=== PATIENT | male | born 1945 | race Caucasian/White ===

== ENCOUNTER 2018-07-02 11:57 | Inpatient (IN) ==
--- NOTE | 2018-07-02 12:13 | Emergency Department Note ---
Disposition Clinical Impression: Dehydration, Diarrhea due to drug Disposition: Admitted As Inpatient Condition: Good Nausea/Vomiting/Diarrhea HPI - General Chief complaint: ED Nausea/Vomiting/Diarrhea Stated complaint: CA PT, NAUSEA VOMITING Time Seen by Provider: 07/02/18 11:57 Source: patient, family Mode of arrival: wheelchair Limitations: no limitations Nursing Notes Reviewed: Yes Vital Signs Reviewed: Yes - History of Present Illness HPI Narrative: Patient complains of diarrhea and nausea. He is on chemotherapy for cancer treatment. He can drink fluids but he cannot keep up with his fluid losses and feels dehydrated. The diarrhea is been going on for several days. He is feeling more more dehydrated each day. There has been no reports of fevers or chills chest pain shortness of breath or other complaints. Pt Subjective Complaint: nausea, vomiting Onset (ago): day(s) (Several days of diarrhea) Description of emesis: watery Description of Diarrhea: water Quality: cramping Consistency: constant Improves with: nothing Worsens with: nonthing Context: other (Chemotherapy) Associated symptoms: Reports: nausea/vomiting, other (Diarrhea) - Related Data Home Medications Medication Instructions Recorded Confirmed LORazepam [Ativan] 0.5 mg PO HS 07/02/18 07/02/18 Ondansetron HCl [Zofran] 4 mg PO Q8HR PRN 07/02/18 07/02/18 Allergies Allergy/AdvReac Type Severity Reaction Status Date / Time No Known Allergies Allergy Verified 07/02/18 12:13 All systems ED: reviewed and negative except as stated. Review of Systems: As Per HPI Constitutional: Denies: fever, chills, weakness, weight change Eyes: Denies: eye pain, eye discharge, vision change ENT ED: Denies: ear pain, throat pain, dental pain, hearing loss, epistaxis, congestion, dysphagia Cardiovascular: Denies: chest pain, palpitations, dyspnea on exertion, edema, syncope Respiratory: Denies: cough, dyspnea, wheezes, hemoptysis, stridor Gastrointestinal: Reports: as per HPI, nausea, diarrhea. Denies: abdominal pain, vomiting, constipation, hematemesis, melena, hematochezia Genitourinary: Denies: urgency, dysuria, frequency, hematuria Musculoskeletal: Denies: back pain, neck pain, arthralgia, myalgia Integumentary: Denies: rash, abrasion, lesions Neurological: Denies: headache, weakness, numbness, paresthesias, confusion, abnormal gait, vertigo Psychiatric: Denies: anxiety, depression, suicidal thoughts, homicidal thoughts, auditory hallucinations, visual hallucinations Endocrine: Denies: fatigue Hematological/Lymphatic: Denies: easy bleeding, easy bruising Allergic/Immunologic: Denies: facial swelling, urticaria Past Medical History - Past Medical History Attestation: Yes The following information was validated with the patient. Source: patient, nursing notes reviewed Physical Exam - General Limitations: no limitations General appearance: alert, in no apparent distress - Head Head exam: atraumatic, normocephalic, normal inspection - Eye Eye exam: Present: normal appearance, PERRL, EOMI - ENT ENT exam: normal exam, normal oropharynx, mucous membranes moist - Neck Neck exam: Present: normal inspection, full ROM, trachea midline - Chest Chest inspection: Present: normal inspection, symmetric chest wall rise - Respiratory Respiratory exam: Present: normal lung sounds bilaterally - Cardiovascular Cardiovascular exam: Present: regular rate, normal rhythm, normal heart sounds - Abdominal Exam Abdominal exam: Present: soft, Non-Tender. Absent: tenderness, distention, guarding, rebound, rigidity - Extremities Exam Extremities exam: Present: normal inspection, full ROM. Absent: tenderness, pedal edema - Back Exam Back exam: Present: normal inspection - Neurological Exam Neurological exam: Present: alert, oriented X3 - Psychiatric Psychiatric exam: Present: normal affect, normal mood - Skin Skin exam: Present: warm, dry, other (Poor skin turgor) Course Vital Signs Temperature 97.7 F 07/02/18 12:01 Pulse Rate 77 07/02/18 12:01 Respiratory Rate 16 07/02/18 12:01 Blood Pressure 145/86 07/02/18 12:01 O2 Sat by Pulse Oximetry 89 07/02/18 12:01 Temperature 97.5 F L 07/04/18 08:00 Pulse Rate 63 07/04/18 08:00 Respiratory Rate 16 07/04/18 08:00 Blood Pressure 134/73 07/04/18 08:00 O2 Sat by Pulse Oximetry 90 07/04/18 08:00 Oxygen Delivery Oxygen Delivery Room Air Nausea/Vomiting/Diarrhea - MDM Narrative Medical decision making narrative: I reviewed the patient's medication list Case was discussed with Dr. Newton who has graciously accepted admission. - Lab Data Lab results reviewed: Yes I reviewed the patient's lab results. Result diagrams: 07/04/18 05:45 07/04/18 05:45 Lab Results 07/02/18 07/02/18 07/02/18 Range/Units 12:20 12:20 16:58 WBC 2.2 L (4.3-11.1) K/mcL RBC 4.34 (4.19-5.50) M/mcL Hgb 12.5 L (12.9-16.9) g/dL Hct 37.5 (37.5-50.1) % MCV 86.4 (83.0-100.0) fL MCH 28.8 (28.0-33.3) pg MCHC 33.3 (31.6-35.5) g/dL RDW 14.9 H (11.5-14.5) % Plt Count 152 (140-400) K/mcL MPV 10.4 (9.4-12.4) fL Seg Neutrophils % 8.0 % Band Neutrophils % (0-4) % Lymphocytes % 58.0 % Monocytes % 28.0 % Eosinophils % 2.0 % Myelocytes % (0) % Blast Cells % 4.0 H (0) % Neutrophils # 0.2 L (1.6-8.9) K/mcL Lymphocytes # 1.3 (0.6-4.6) K/mcL Monocytes # 0.6 (0.0-1.3) K/mcL Eosinophils # 0.0 (0.0-0.6) K/mcL Nucleated RBCs/100 WBC 1.8 H (0) /100 WBC Reactive Lymphocytes Present A (Not Present) Dohle Bodies (Not Present) Platelet Estimate Normal (Normal) Large Platelets (Not Present) Polychromasia 2+ A (Not Present) Hypochromasia (Not Present) Anisocytosis 1+ A (Not Present) Sodium 138 (136-145) mEq/L Potassium 2.9 L (3.5-5.1) mEq/L Chloride 101 (98-107) mEq/L Carbon Dioxide 24 (23-29) mEq/L BUN 23 (8-23) mg/dL Creatinine 1.27 (0.70-1.30) mg/dL Est GFR ( Amer) > 60 (> 60) Est GFR (Non-Af Amer) 55 L (> 60) BUN/Creatinine Ratio 18 (6-26) Glucose 222 H (70-105) mg/dL Est Mean Plasma Glucose mg/dl Hemoglobin A1c ( - 5.6) % Calculated Osmolality 297 (280-300) Calcium 8.4 L (8.6-10.3) mg/dL Magnesium (1.6-2.6) mg/dL Iron (65-175) mcg/dL % Saturation (20-55) % Transferrin (203-362) mg/dL Ferritin (20-250) ng/mL Total Bilirubin 1.1 H (0.3-1.0) mg/dL AST 10 L (13-39) Units/L ALT 21 (7-52) Units/L Alkaline Phosphatase 71 (34-104) Units/L Serum Total Protein 6.4 (6.4-8.9) g/dL Albumin 3.0 L (3.5-5.7) g/dL Globulin 3.4 (2.4-3.5) g/dL Albumin/Globulin Ratio 0.9 L (1.1-2.2) Vitamin B12 (250-1100) pg/mL Folate (3.0-16.0) ng/mL TSH (0.340-5.600) mcIU/mL Urine Color Keena A (Yellow) Urine Clarity Clear (Clear) Urine pH 6.0 (5.0-8.0) pH Units Ur Specific [place] >= 1.030 H (1.010-1.025) Urine Protein >=300 H (Neg-Trace) mg/dL Urine Glucose (UA) Normal (Normal) mg/dL Urine Ketones Negative (Negative) mg/dL Urine Blood Small H (Negative) Urine Nitrite Negative (Negative) Urine Bilirubin Small H (Negative) Urine Urobilinogen Normal (Normal) mg/dL Ur Leukocyte Esterase Negative (Negative) Urine Microscopic RBC 0-3 (0-3) per hpf Urine Microscopic WBC 0-3 (0-3) per hpf Ur Squamous Epith Cells Few (None-Few) per lpf Urine Bacteria Many H (None-Few) per hpf Hyaline Casts Few (None-Few) per lpf Urine Mucus Moderate H (Few) Ur Culture Indicated? NO (NO) 07/03/18 07/03/18 07/03/18 Range/Units 04:50 04:50 04:50 WBC 3.9 L D (4.3-11.1) K/mcL RBC 3.57 L (4.19-5.50) M/mcL Hgb 10.3 L D (12.9-16.9) g/dL Hct 31.4 L (37.5-50.1) % MCV 88.0 (83.0-100.0) fL MCH 28.9 (28.0-33.3) pg MCHC 32.8 (31.6-35.5) g/dL RDW 15.1 H (11.5-14.5) % Plt Count 129 L (140-400) K/mcL MPV 11.2 (9.4-12.4) fL Seg Neutrophils % 28.0 % Band Neutrophils % 20.0 H (0-4) % Lymphocytes % 42.0 % Monocytes % 4.0 % Eosinophils % % Myelocytes % 6.0 H (0) % Blast Cells % (0) % Neutrophils # 1.9 (1.6-8.9) K/mcL Lymphocytes # 1.6 (0.6-4.6) K/mcL Monocytes # 0.2 (0.0-1.3) K/mcL Eosinophils # (0.0-0.6) K/mcL Nucleated RBCs/100 WBC 1.3 H (0) /100 WBC Reactive Lymphocytes (Not Present) Dohle Bodies Present A (Not Present) Platelet Estimate Normal (Normal) Large Platelets Present A (Not Present) Polychromasia 1+ A (Not Present) Hypochromasia Present A (Not Present) Anisocytosis (Not Present) Sodium 141 (136-145) mEq/L Potassium 2.9 L (3.5-5.1) mEq/L Chloride 108 H (98-107) mEq/L Carbon Dioxide 25 (23-29) mEq/L BUN 19 (8-23) mg/dL Creatinine 1.04 (0.70-1.30) mg/dL Est GFR ( Amer) > 60 (> 60) Est GFR (Non-Af Amer) > 60 (> 60) BUN/Creatinine Ratio 18 (6-26) Glucose 139 H (70-105) mg/dL Est Mean Plasma Glucose mg/dl Hemoglobin A1c ( - 5.6) % Calculated Osmolality 297 (280-300) Calcium 7.6 L (8.6-10.3) mg/dL Magnesium (1.6-2.6) mg/dL Iron 80 (65-175) mcg/dL % Saturation 41 (20-55) % Transferrin 139 L (203-362) mg/dL Ferritin 1099 H (20-250) ng/mL Total Bilirubin (0.3-1.0) mg/dL AST (13-39) Units/L ALT (7-52) Units/L Alkaline Phosphatase (34-104) Units/L Serum Total Protein (6.4-8.9) g/dL Albumin (3.5-5.7) g/dL Globulin (2.4-3.5) g/dL Albumin/Globulin Ratio (1.1-2.2) Vitamin B12 (250-1100) pg/mL Folate (3.0-16.0) ng/mL TSH 5.541 (0.340-5.600) mcIU/mL Urine Color (Yellow) Urine Clarity (Clear) Urine pH (5.0-8.0) pH Units Ur Specific [place] (1.010-1.025) Urine Protein (Neg-Trace) mg/dL Urine Glucose (UA) (Normal) mg/dL Urine Ketones (Negative) mg/dL Urine Blood (Negative) Urine Nitrite (Negative) Urine Bilirubin (Negative) Urine Urobilinogen (Normal) mg/dL Ur Leukocyte Esterase (Negative) Urine Microscopic RBC (0-3) per hpf Urine Microscopic WBC (0-3) per hpf Ur Squamous Epith Cells (None-Few) per lpf Urine Bacteria (None-Few) per hpf Hyaline Casts (None-Few) per lpf Urine Mucus (Few) Ur Culture Indicated? (NO) 07/03/18 07/03/18 07/03/18 Range/Units 04:50 04:50 11:45 WBC (4.3-11.1) K/mcL RBC (4.19-5.50) M/mcL Hgb (12.9-16.9) g/dL Hct (37.5-50.1) % MCV (83.0-100.0) fL MCH (28.0-33.3) pg MCHC (31.6-35.5) g/dL RDW (11.5-14.5) % Plt Count (140-400) K/mcL MPV (9.4-12.4) fL Seg Neutrophils % % Band Neutrophils % (0-4) % Lymphocytes % % Monocytes % % Eosinophils % % Myelocytes % (0) % Blast Cells % (0) % Neutrophils # (1.6-8.9) K/mcL Lymphocytes # (0.6-4.6) K/mcL Monocytes # (0.0-1.3) K/mcL Eosinophils # (0.0-0.6) K/mcL Nucleated RBCs/100 WBC (0) /100 WBC Reactive Lymphocytes (Not Present) Dohle Bodies (Not Present) Platelet Estimate (Normal) Large Platelets (Not Present) Polychromasia (Not Present) Hypochromasia (Not Present) Anisocytosis (Not Present) Sodium (136-145) mEq/L Potassium (3.5-5.1) mEq/L Chloride (98-107) mEq/L Carbon Dioxide (23-29) mEq/L BUN (8-23) mg/dL Creatinine (0.70-1.30) mg/dL Est GFR ( Amer) (> 60) Est GFR (Non-Af Amer) (> 60) BUN/Creatinine Ratio (6-26) Glucose (70-105) mg/dL Est Mean Plasma Glucose 160 mg/dl Hemoglobin A1c 7.2 H ( - 5.6) % Calculated Osmolality (280-300) Calcium (8.6-10.3) mg/dL Magnesium 1.9 (1.6-2.6) mg/dL Iron (65-175) mcg/dL % Saturation (20-55) % Transferrin (203-362) mg/dL Ferritin (20-250) ng/mL Total Bilirubin (0.3-1.0) mg/dL AST (13-39) Units/L ALT (7-52) Units/L Alkaline Phosphatase (34-104) Units/L Serum Total Protein (6.4-8.9) g/dL Albumin (3.5-5.7) g/dL Globulin (2.4-3.5) g/dL Albumin/Globulin Ratio (1.1-2.2) Vitamin B12 703 (250-1100) pg/mL Folate > 22.3 H (3.0-16.0) ng/mL TSH (0.340-5.600) mcIU/mL Urine Color (Yellow) Urine Clarity (Clear) Urine pH (5.0-8.0) pH Units Ur Specific [place] (1.010-1.025) Urine Protein (Neg-Trace) mg/dL Urine Glucose (UA) (Normal) mg/dL Urine Ketones (Negative) mg/dL Urine Blood (Negative) Urine Nitrite (Negative) Urine Bilirubin (Negative) Urine Urobilinogen (Normal) mg/dL Ur Leukocyte Esterase (Negative) Urine Microscopic RBC (0-3) per hpf Urine Microscopic WBC (0-3) per hpf Ur Squamous Epith Cells (None-Few) per lpf Urine Bacteria (None-Few) per hpf Hyaline Casts (None-Few) per lpf Urine Mucus (Few) Ur Culture Indicated? (NO)
[2018-07-02] MEDS ORDERED: 0.9 % Sodium Chloride 1,000 ML IVC ONE ×2 (12:14→13:03)
[2018-07-02] MEDS ORDERED: Ondansetron 4 MG/2 ML VIAL IVP ONE (12:14)
[2018-07-02 12:32] LABS: Hematocrit 37.5 % (37.5-50.1); Hemoglobin 12.5 g/dL (12.9-16.9); Mean Corpuscular HGB Conc 33.3 g/dL (31.6-35.5); Mean Corpuscular Hemoglobin 28.8 pg (28.0-33.3); Mean Corpuscular Volume 86.4 fL (83.0-100.0); Mean Platelet Volume 10.4 fL (9.4-12.4); Nucleated Red Blood Cells 1.8 /100 WBC (0); Platelet Count 152 K/mcL (140-400); Red Blood Count 4.34 M/mcL (4.19-5.50); Red Cell Distribution Width 14.9 % (11.5-14.5)
[2018-07-02 12:52] LABS: Alanine Aminotransferase 21 Units/L (7-52); Albumin/Globulin Ratio 0.9 (1.1-2.2); Alkaline Phosphatase 71 Units/L (34-104); Aspartate Amino Transferase 10 Units/L (13-39); BUN/Creatinine Ratio 18 (6-26); Bilirubin,Total 1.1 mg/dL (0.3-1.0); Blood Urea Nitrogen 23 mg/dL (8-23); Calcium 8.4 mg/dL (8.6-10.3); Carbon Dioxide 24 mEq/L (23-29); Chloride 101 mEq/L (98-107); Globulin 3.4 g/dL (2.4-3.5); Glucose 222 mg/dL (70-105); Osmolality,Calculated 297 (280-300); Potassium 2.9 mEq/L (3.5-5.1); Sodium 138 mEq/L (136-145); Total Protein 6.4 g/dL (6.4-8.9); eGFR For Non-African Americans 55 (> 60)
[2018-07-02 13:02] LABS: Lymphocytes # 1.3 K/mcL (0.6-4.6); Monocytes # 0.6 K/mcL (0.0-1.3); Neutrophils # 0.2 K/mcL (1.6-8.9)
[2018-07-02] MEDS ORDERED: Potassium Chloride 20 MEQ, Lidocaine 1% 2 ML in D5% in Water 250 ML IVPB ONE (13:02)
[2018-07-02 13:03] LABS: Anisocytosis 1+ (Not Present); Platelet Estimate Normal (Normal); Polychromasia 2+ (Not Present); Reactive Lymphocytes Present (Not Present)
[2018-07-02] MEDS ORDERED: Ondansetron ODT 4 MG TAB.RAPDIS PO PRN (16:01)
[2018-07-02] MEDS ORDERED: Naloxone 0.4 MG/ML INJ IVP PRN (16:01)
[2018-07-02 17:04] LABS: Bilirubin,Urine Small (Negative); Blood,Urine Small (Negative); Clarity,Urine Clear (Clear); Color,Urine Amber (Yellow); Glucose,Urine (UA) Normal (Normal); Ketones,Urine Negative (Negative); Leukocyte Esterase,Urine Negative (Negative); Nitrite,Urine Negative (Negative); Protein,Urine >=300 mg/dL (Neg-Trace); Specific Gravity,Urine >= 1.030 (1.010-1.025); Urobilinogen,Urine Normal (Normal)
[2018-07-02 17:14] LABS: Bacteria,Urine Many per hpf (None-Few); Mucus,Urine Moderate (Few); RBC,Urine 0-3 per hpf (0-3); Squamous Epithelial Cell,Urine Few per lpf (None-Few); WBC,Urine 0-3 per hpf (0-3)
[2018-07-02 17:15] LABS: Hyaline Casts,Urine Few per lpf (None-Few)
[2018-07-02] MEDS: 0.9 % Sodium Chloride 1,000 ML IVC SCH (17:32)
[2018-07-02] MEDS: *HR* LORazepam 0.5 MG TABLET PO PRN (21:14)
[2018-07-03] MEDS: 0.9 % Sodium Chloride 1,000 ML IVC SCH (03:54)
[2018-07-03] MEDS: Diphenoxylate/Atropine 1 TAB TABLET PO PRN ×3 (04:19→22:02)
[2018-07-03 05:26] LABS: Hematocrit 31.4 % (37.5-50.1); Mean Corpuscular HGB Conc 32.8 g/dL (31.6-35.5); Mean Corpuscular Hemoglobin 28.9 pg (28.0-33.3); Mean Platelet Volume 11.2 fL (9.4-12.4); Nucleated Red Blood Cells 1.3 /100 WBC (0); Platelet Count 129 K/mcL (140-400); Red Blood Count 3.57 M/mcL (4.19-5.50); Red Cell Distribution Width 15.1 % (11.5-14.5)
[2018-07-03 05:46] LABS: BUN/Creatinine Ratio 18 (6-26); Blood Urea Nitrogen 19 mg/dL (8-23); Calcium 7.6 mg/dL (8.6-10.3); Carbon Dioxide 25 mEq/L (23-29); Chloride 108 mEq/L (98-107); Glucose 139 mg/dL (70-105); Osmolality,Calculated 297 (280-300); Potassium 2.9 mEq/L (3.5-5.1); Sodium 141 mEq/L (136-145); eGFR For Non-African Americans > 60 (> 60)
[2018-07-03 06:51] LABS: Hemoglobin 10.3 g/dL (12.9-16.9)
[2018-07-03 06:56] LABS: Lymphocytes # 1.6 K/mcL (0.6-4.6); Monocytes # 0.2 K/mcL (0.0-1.3); Neutrophils # 1.9 K/mcL (1.6-8.9)
[2018-07-03 06:57] LABS: Hypochromasia Present (Not Present); Large Platelets Present (Not Present); Platelet Estimate Normal (Normal); Polychromasia 1+ (Not Present)
[2018-07-03 06:58] LABS: Dohle Bodies Present (Not Present)
[2018-07-03] MEDS ORDERED: Levofloxacin 750 MG/150 ML 750 MG/150 ML BAG IVPB ONE (09:31)
--- NOTE | 2018-07-03 09:34 | Internal Med History&Physical ---
Date of Encounter: 07/03/18 Time of Encounter: 09:00 Assessment and Plan (1) Dehydration Current visit: Yes Status: Acute Likely secondary to diarrhea and poor oral intake. IV fluids have been ordered. Monitor labs. (2) Bandemia Current visit: Yes Status: Acute Follow-up labs today showed 20% bands. Chest x-ray and urine culture have been ordered. Start IV Levaquin. (3) Leukopenia Current visit: Yes Status: Acute As per above Qualifiers: Leukopenia type: unspecified Qualified Code(s): D72.819 - Decreased white blood cell count, unspecified (4) Anemia Current visit: Yes Status: Acute Anemia testing will be ordered. Qualifiers: Anemia type: unspecified type Qualified Code(s): D64.9 - Anemia, unspecified (5) Hypokalemia Current visit: Yes Status: Acute Supplemental potassium will be given. (6) Hyperglycemia Current visit: Yes Status: Acute Hemoglobin A1c will be ordered. (7) Prostate cancer Current visit: Yes Status: Chronic As per oncologist (8) Colon cancer metastasized to liver Current visit: Yes Status: Acute As per oncologist Internal Medicine - H&P: HPI Chief complaint: Weakness and diarrhea Admitted From: Emergency Dept Plans for Post Hospital Care: Home History of present illness: Mr. Mehta is a 73 year old male who was brought to emergency room by his after she became concerned he was becoming dehydrated. He reports having diarrhea for the last 4-5 weeks following initiation of chemotherapy for colon cancer with known metastases to liver and lungs. He denies melena or hematochezia. He denies vomiting other than occasional "gagging". He was evaluated in emergency room found to have leukopenia, anemia, hypokalemia, and azotemia. He was admitted to [facility] floor for ongoing care needs. He reports he was diagnosed with prostate cancer in 2012. He was diagnosed with colon cancer 2018 with known metastases to liver and lung as per above. He follows with an oncologist in [facility]. He was unaware he had anemia on labs in emergency room. Denies other internal malignancies. Past Med Surg Social Fam HX - Past Medical History Medical history: cancer, other Additional medical history: CA PROSTATE, LUNG, COLON. 2013 liver cancer Psychiatric history: anxiety - Past Surgical History Additional surgical history: BIOPSY FOR CA, INFUSION PORT RT CHEST. - Social History Smoking Status: Former smoker Smokeless Tobacco Status: No Alcohol use: none Drug use: none Internal Medicine - H&P: Meds LORazepam [Ativan] 0.5 mg PO HS 07/02/18 [History] Ondansetron HCl [Zofran] 4 mg PO Q8HR PRN 07/02/18 [History] Allergy/AdvReac Type Severity Reaction Status Date / Time No Known Allergies Allergy Verified 07/02/18 12:13 All Systems PM: A 10-system review of systems was performed and is negative for pertinent findings except as documented above in the HPI. Review of systems: Gen.: He states his weight has decreased approximately 45 pounds in the past year Cardiovascular: He denies hypertension CO heart failure angina DVT or pulmonary embolus Respiratory: He smoked for approximate 5 years in early adulthood. He denies chronic lung disease. He does not use home oxygen. GI: He has known liver metastases as per above. He denies other disorders of his liver gallbladder or exocrine pancreas : He denies hematuria dysuria or kidney stones Neurologic: He denies large distribution strokes or seizures. Endocrine: He denies diabetes thyroid disease or hyperlipidemia Hematology/oncology: As per history of present illness Psychiatric: He has anxiety but denies depression or other mental health issues [place] skeletal: As per history of present illness - Constitutional Vitals: Temp Pulse Resp BP Pulse Ox 98.8 F 89 16 115/71 92 07/03/18 05:47 07/03/18 05:47 07/03/18 05:47 07/03/18 05:47 07/03/18 05:47 Exam: Gen.: He is a well-developed lean male who appears in no acute distress but is weak HEENT: Head is atraumatic and normocephalic. Eyes: EOMI. There is no scleral icterus. Mouth: Mucosa is dry Neck: There is no thyromegaly or adenopathy noted. Heart: Regular without murmurs gallops or ectopics Lungs: No wheezes or crackles are heard. Abdomen: Soft and nontender. No masses or guarding are noted. Extremities: There is no cyanosis edema or clubbing noted. Dorsalis pedis and posttibial pulses are trace to 1+ palpable bilaterally. Neurologic: Mental status: He is talkative and a good historian heard cranial nerves: Smile is symmetric. Forehead wrinkles bilaterally. Tongue protrudes midline. EOMI. Motor: There is no pronator drift. Cerebellar: Finger to nose is intact bilaterally. Skin: Warm and dry Internal Med - H&P Results - Labs CBC & Chem 7: 07/03/18 04:50 07/03/18 04:50 Labs: Short CBC 07/02/18 07/03/18 Range/Units 12:20 04:50 WBC 2.2 L 3.9 L D (4.3-11.1) K/mcL Hgb 12.5 L 10.3 L D (12.9-16.9) g/dL Hct 37.5 31.4 L (37.5-50.1) % Plt Count 152 129 L (140-400) K/mcL Neutrophils # 0.2 L 1.9 (1.6-8.9) K/mcL BMP 07/02/18 07/03/18 12:20 04:50 Sodium 138 141 Potassium 2.9 L 2.9 L Chloride 101 108 H Carbon Dioxide 24 25 BUN 23 19 Creatinine 1.27 1.04 Glucose 222 H 139 H Calcium 8.4 L 7.6 L Liver Function 07/02/18 Range/Units 12:20 Total Bilirubin 1.1 H (0.3-1.0) mg/dL AST 10 L (13-39) Units/L ALT 21 (7-52) Units/L Alkaline Phosphatase 71 (34-104) Units/L Albumin 3.0 L (3.5-5.7) g/dL Urine 07/02/18 Range/Units 16:58 Urine Color Keena A (Yellow) Urine Clarity Clear (Clear) Urine pH 6.0 (5.0-8.0) pH Units Ur Specific [place] >= 1.030 H (1.010-1.025) Urine Protein >=300 H (Neg-Trace) mg/dL Urine Glucose (UA) Normal (Normal) mg/dL
[2018-07-03] MEDS: 0.9 % Sodium Chloride w KCl 20 MEQ/1,000 ML MLS IVC SCH ×2 (10:32→18:50)
[2018-07-03 11:16] LABS: Thyroid Stimulating Hormone 5.541 mcIU/mL (0.340-5.600)
[2018-07-03 21:10] LABS: Vitamin B12 703 pg/mL (250-1100)
[2018-07-03 21:11] LABS: Folate > 22.3 ng/mL (3.0-16.0)
[2018-07-03] MEDS: *HR* LORazepam 0.5 MG TABLET PO PRN (21:59)
[2018-07-04] MEDS: 0.9 % Sodium Chloride w KCl 20 MEQ/1,000 ML MLS IVC SCH ×3 (02:52→21:40)
[2018-07-04 05:59] LABS: Hematocrit 29.1 % (37.5-50.1); Hemoglobin 9.6 g/dL (12.9-16.9); Mean Corpuscular Hemoglobin 29.1 pg (28.0-33.3); Mean Corpuscular Volume 88.2 fL (83.0-100.0); Mean Platelet Volume 10.8 fL (9.4-12.4); Nucleated Red Blood Cells 1.3 /100 WBC (0); Platelet Count 128 K/mcL (140-400); Red Cell Distribution Width 15.3 % (11.5-14.5)
[2018-07-04 06:57] LABS: Alanine Aminotransferase 11 Units/L (7-52); Albumin 2.2 g/dL (3.5-5.7); Albumin/Globulin Ratio 0.9 (1.1-2.2); Alkaline Phosphatase 49 Units/L (34-104); Aspartate Amino Transferase 9 Units/L (13-39); BUN/Creatinine Ratio 16 (6-26); Bilirubin,Total 0.4 mg/dL (0.3-1.0); Blood Urea Nitrogen 14 mg/dL (8-23); Calcium 7.3 mg/dL (8.6-10.3); Carbon Dioxide 23 mEq/L (23-29); Chloride 114 mEq/L (98-107); Globulin 2.5 g/dL (2.4-3.5); Glucose 148 mg/dL (70-105); Osmolality,Calculated 297 (280-300); Potassium 3.4 mEq/L (3.5-5.1); Sodium 142 mEq/L (136-145); Total Protein 4.7 g/dL (6.4-8.9); eGFR For Non-African Americans > 60 (> 60)
[2018-07-04 07:56] LABS: Anisocytosis 2+ (Not Present); Basophils # 0.1 K/mcL (0.0-0.2); Eosinophils # 0.3 K/mcL (0.0-0.6); Lymphocytes # 2.7 K/mcL (0.6-4.6); Monocytes # 0.5 K/mcL (0.0-1.3); Neutrophils # 2.4 K/mcL (1.6-8.9); Polychromasia 2+ (Not Present)
[2018-07-04 07:57] LABS: Hypochromasia Present (Not Present); Large Platelets Present (Not Present); Platelet Estimate Normal (Normal); Toxic Granulation Present (Not Present)
[2018-07-04 08:11] LABS: Estimated Average Glucose 160 mg/dl; Hemoglobin A1C 7.2 %
--- NOTE | 2018-07-04 10:08 | Internal Med Progress Note ---
Date of Encounter: 07/04/18 Time of Encounter: 09:55 - Assessment and plan (1) Dehydration Current Visit: Yes Status: Acute Assessment and plan: July 04. Azotemia has resolved. Continue IV fluids at decreased rate. (2) Bandemia Current Visit: Yes Status: Acute Assessment and plan: July 04. Bandemia has decreased to 6%. Continue IV Levaquin and and lactobacillus. (3) Leukopenia Current Visit: Yes Status: Acute Assessment and plan: July 04. WBC now normal at 6.3. Qualifiers: Leukopenia type: unspecified Qualified Code(s): D72.819 - Decreased white blood cell count, unspecified (4) Anemia Current Visit: Yes Status: Acute Assessment and plan: July 04. Anemia testing showed iron 80, transferrin saturation 41%, transferrin 139, ferritin 1099, B12 703, and folate> 22.3. Qualifiers: Anemia type: unspecified type Qualified Code(s): D64.9 - Anemia, unspecified (5) Hypokalemia Current Visit: Yes Status: Acute Assessment and plan: July 04. Potassium improved to 3.4. Continue supplementation and recheck labs in a.m. (6) Hyperglycemia Current Visit: Yes Status: Acute Assessment and plan: July 04. Hemoglobin A1c 7.2%. I discussed with patient and he has DM 2 but likely diet-controlled at present. A PCP can monitor. (7) Prostate cancer Current Visit: Yes Status: Chronic Assessment and plan: July 04. As per oncologist. (8) Colon cancer metastasized to liver Current Visit: Yes Status: Acute Assessment and plan: July 04. As per oncologist - Subjective Interval history: July 04. He has no new complaints and feels slightly improved. - Constitutional Vitals: Temp Pulse Resp BP Pulse Ox 97.5 F L 63 16 134/73 90 07/04/18 08:00 07/04/18 08:00 07/04/18 08:00 07/04/18 08:00 07/04/18 08:00 Exam: He is resting comfortably in bed and appears in no acute distress. His affect is bright and cheerful. I reviewed his medications and lab results. Internal Medicine: Result - Labs CBC & Chem 7: 07/04/18 05:45 07/04/18 05:45 Labs: Short CBC 07/04/18 Range/Units 05:45 WBC 6.3 D (4.3-11.1) K/mcL Hgb 9.6 L (12.9-16.9) g/dL Hct 29.1 L (37.5-50.1) % Plt Count 128 L (140-400) K/mcL Neutrophils # 2.4 (1.6-8.9) K/mcL BMP 07/04/18 05:45 Sodium 142 Potassium 3.4 L Chloride 114 H Carbon Dioxide 23 BUN 14 Creatinine 0.85 Glucose 148 H Calcium 7.3 L Liver Function 07/04/18 Range/Units 05:45 Total Bilirubin 0.4 (0.3-1.0) mg/dL AST 9 L (13-39) Units/L ALT 11 (7-52) Units/L Alkaline Phosphatase 49 (34-104) Units/L Albumin 2.2 L (3.5-5.7) g/dL - Impressions Impressions Chest X-Ray 07/03/18 09:28 IMPRESSION: Hypoaeration without acute process. D/ / 07/03/2018 11:30:42 Cory Dick MD / [email or web address] Interpreting Provider: Cory Dick MD Consult Discharge Plan - Plan Referrals: NONE,PCP [Primary Care Provider] - 1 week
[2018-07-04] MEDS: Levofloxacin 750 MG/150 ML 750 MG/150 ML BAG IVPB SCH (11:11)
[2018-07-04] MEDS: *HR* LORazepam 0.5 MG TABLET PO PRN (12:21)
[2018-07-04 15:28] LABS: Bilirubin,Urine Negative (Negative); Blood,Urine Negative (Negative); Clarity,Urine Clear (Clear); Color,Urine Yellow (Yellow); Glucose,Urine (UA) Normal (Normal); Ketones,Urine Negative (Negative); Leukocyte Esterase,Urine Negative (Negative); Nitrite,Urine Negative (Negative); Protein,Urine 30 mg/dL (Neg-Trace); Specific Gravity,Urine 1.025 (1.010-1.025); Urobilinogen,Urine Normal (Normal)
[2018-07-04 15:37] LABS: Bacteria,Urine Few per hpf (None-Few); Granular Casts,Urine Few per lpf (None Seen); Hyaline Casts,Urine Few per lpf (None-Few); RBC,Urine 0-3 per hpf (0-3); Squamous Epithelial Cell,Urine Few per lpf (None-Few); WBC,Urine 0-3 per hpf (0-3); Waxy Casts,Urine Few per lpf (None Seen)
[2018-07-04 15:38] LABS: Mucus,Urine Moderate (Few); White Blood Cell Casts,Urine Few per lpf (None Seen)
[2018-07-04] MEDS: Lactobacillus 1 EACH CAP.SPRINK PO SCH (21:41)
[2018-07-05] MEDS: Diphenoxylate/Atropine 1 TAB TABLET PO PRN ×2 (00:27→16:44)
[2018-07-05 05:54] LABS: Hematocrit 29.1 % (37.5-50.1); Hemoglobin 9.7 g/dL (12.9-16.9); Mean Corpuscular HGB Conc 33.3 g/dL (31.6-35.5); Mean Corpuscular Hemoglobin 29.4 pg (28.0-33.3); Mean Corpuscular Volume 88.2 fL (83.0-100.0); Mean Platelet Volume 10.6 fL (9.4-12.4); Nucleated Red Blood Cells 0.7 /100 WBC (0); Platelet Count 123 K/mcL (140-400); Red Cell Distribution Width 15.5 % (11.5-14.5)
[2018-07-05 06:11] LABS: BUN/Creatinine Ratio 12 (6-26); Blood Urea Nitrogen 9 mg/dL (8-23); Calcium 7.3 mg/dL (8.6-10.3); Carbon Dioxide 23 mEq/L (23-29); Chloride 113 mEq/L (98-107); Glucose 152 mg/dL (70-105); Osmolality,Calculated 296 (280-300); Phosphorous 1.2 mg/dL (2.7-4.5); Potassium 3.6 mEq/L (3.5-5.1); Sodium 142 mEq/L (136-145); eGFR For Non-African Americans > 60 (> 60)
[2018-07-05 06:54] LABS: Eosinophils # 0.4 K/mcL (0.0-0.6); Monocytes # 0.4 K/mcL (0.0-1.3); Neutrophils # 3.1 K/mcL (1.6-8.9)
[2018-07-05 06:56] LABS: Anisocytosis 1+ (Not Present); Polychromasia 1+ (Not Present)
[2018-07-05 06:57] LABS: Platelet Estimate Slight Decrease (Normal)
[2018-07-05] MEDS: Levofloxacin 750 MG/150 ML 750 MG/150 ML BAG IVPB SCH (07:56)
[2018-07-05] MEDS: Lactobacillus 1 EACH CAP.SPRINK PO SCH ×2 (07:56→20:12)
[2018-07-05] MEDS: 0.9 % Sodium Chloride w KCl 20 MEQ/1,000 ML MLS IVC SCH (07:58)
--- NOTE | 2018-07-05 11:15 | Internal Med Progress Note ---
Date of Encounter: 07/05/18 Time of Encounter: 10:20 - Assessment and plan (1) Dehydration Current Visit: Yes Status: Acute Assessment and plan: July 04. Azotemia has resolved. Continue IV fluids at decreased rate. July 05. Discontinue IV fluids. (2) Bandemia Current Visit: Yes Status: Acute Assessment and plan: July 04. Bandemia has decreased to 6%. Continue IV Levaquin and and lactobacillus. July 05. WBC 7.1 with 6% bands and 38% lymphs. Continue Levaquin and lactobacillus. Source of bandemia not obvious. (3) Leukopenia Current Visit: Yes Status: Acute Assessment and plan: July 04. WBC now normal at 6.3. Qualifiers: Leukopenia type: unspecified Qualified Code(s): D72.819 - Decreased white blood cell count, unspecified (4) Anemia Current Visit: Yes Status: Acute Assessment and plan: July 04. Anemia testing showed iron 80, transferrin saturation 41%, transferrin 139, ferritin 1099, B12 703, and folate> 22.3. July 05. Hemoglobin stable at 9.7. Continue to monitor. Qualifiers: Anemia type: unspecified type Qualified Code(s): D64.9 - Anemia, unspecified (5) Hypokalemia Current Visit: Yes Status: Acute Assessment and plan: July 04. Potassium improved to 3.4. Continue supplementation and recheck labs in a.m. July 05. Potassium normal at 3.6. Discontinue IV fluids with potassium supplement since vomiting has resolved. (6) Hyperglycemia Current Visit: Yes Status: Acute Assessment and plan: July 04. Hemoglobin A1c 7.2%. I discussed with patient and he has DM 2 but likely diet-controlled at present. A PCP can monitor. July 05. Continue to monitor Accu-Cheks. (7) Prostate cancer Current Visit: Yes Status: Chronic Assessment and plan: July 04. As per oncologist. (8) Colon cancer metastasized to liver Current Visit: Yes Status: Acute Assessment and plan: July 04. As per oncologist (9) Hypophosphatemia Current Visit: Yes Status: Acute Assessment and plan: July 05. Phosphorus level low at 1.2. Start Neutra-Phos and monitor labs. (10) Weakness Current Visit: Yes Status: Acute Assessment and plan: July 05. Order PT and OT evaluations. Patient and think swing bed might be beneficial. - Subjective Interval history: July 04. He has no new complaints and feels slightly improved. July 05. He has no new complaints. He feels weak on attempting to ambulate. - Constitutional Vitals: Temp Pulse Resp BP Pulse Ox 98.2 F 58 16 134/71 96 07/05/18 06:00 07/05/18 06:00 07/05/18 06:00 07/05/18 06:00 07/05/18 06:00 Exam: He is resting comfortably in bed and appears in no acute distress. His affect is cheerful. I reviewed his medications and lab results. Internal Medicine: Result - Labs CBC & Chem 7: 07/05/18 05:12 07/05/18 05:12 Labs: Short CBC 07/05/18 Range/Units 05:12 WBC 7.1 (4.3-11.1) K/mcL Hgb 9.7 L (12.9-16.9) g/dL Hct 29.1 L (37.5-50.1) % Plt Count 123 L (140-400) K/mcL Neutrophils # 3.1 (1.6-8.9) K/mcL BMP 07/05/18 05:12 Sodium 142 Potassium 3.6 Chloride 113 H Carbon Dioxide 23 BUN 9 Creatinine 0.76 Glucose 152 H Calcium 7.3 L Urine 07/03/18 Range/Units 15:00 Urine Color Yellow (Yellow) Urine Clarity Clear (Clear) Urine pH 5.0 (5.0-8.0) pH Units Ur Specific [place] 1.025 (1.010-1.025) Urine Protein 30 H (Neg-Trace) mg/dL Urine Glucose (UA) Normal (Normal) mg/dL Consult Discharge Plan - Plan Referrals: NONE,PCP [Primary Care Provider] - 1 week
[2018-07-06 05:56] LABS: Hematocrit 29.8 % (37.5-50.1); Mean Corpuscular HGB Conc 33.6 g/dL (31.6-35.5); Mean Corpuscular Hemoglobin 29.6 pg (28.0-33.3); Mean Corpuscular Volume 88.2 fL (83.0-100.0); Mean Platelet Volume 10.5 fL (9.4-12.4); Nucleated Red Blood Cells 0.4 /100 WBC (0); Platelet Count 124 K/mcL (140-400); Red Blood Count 3.38 M/mcL (4.19-5.50); Red Cell Distribution Width 15.7 % (11.5-14.5)
[2018-07-06 06:07] LABS: BUN/Creatinine Ratio 9 (6-26); Blood Urea Nitrogen 7 mg/dL (8-23); Calcium 7.5 mg/dL (8.6-10.3); Carbon Dioxide 23 mEq/L (23-29); Chloride 110 mEq/L (98-107); Glucose 143 mg/dL (70-105); Osmolality,Calculated 294 (280-300); Phosphorous 2.3 mg/dL (2.7-4.5); Potassium 3.1 mEq/L (3.5-5.1); Sodium 142 mEq/L (136-145); eGFR For Non-African Americans > 60 (> 60)
[2018-07-06 06:47] VITALS: BP 154/86
[2018-07-06 07:06] LABS: Anisocytosis 2+ (Not Present); Basophilic Stippling 1+ (Not Present); Dohle Bodies Present (Not Present); Large Platelets Present (Not Present); Lymphocytes # 2.9 K/mcL (0.6-4.6); Monocytes # 0.5 K/mcL (0.0-1.3); Neutrophils # 4.3 K/mcL (1.6-8.9); Plasma Cells Present (Not Present); Platelet Estimate Decreased (Normal); Poikilocytosis 1+ (Not Present); Polychromasia 1+ (Not Present); Reactive Lymphocytes Present (Not Present); Toxic Granulation Present (Not Present)
[2018-07-06] MEDS: Levofloxacin 750 MG/150 ML 750 MG/150 ML BAG IVPB SCH (10:28)
[2018-07-06] MEDS: Lactobacillus 1 EACH CAP.SPRINK PO SCH (10:29)
--- NOTE | 2018-07-06 12:33 | Discharge Summary ---
Date of Encounter: 07/06/18 Time of Encounter: 12:20 - Discharge Diagnosis (1) Dehydration Priority: Primary Status: Resolved (2) Bandemia Priority: Secondary Status: Acute (3) Leukopenia Priority: Secondary Status: Resolved Qualifiers: Leukopenia type: unspecified Qualified Code(s): D72.819 - Decreased white blood cell count, unspecified (4) Anemia Priority: Secondary Status: Acute Qualifiers: Anemia type: unspecified type Qualified Code(s): D64.9 - Anemia, unspecified (5) Hypokalemia Priority: Secondary Status: Acute (6) Prostate cancer Priority: Secondary Status: Chronic (7) Colon cancer metastasized to liver Priority: Secondary Status: Chronic (8) Hypophosphatemia Priority: Secondary Status: Acute (9) Weakness Priority: Secondary Status: Chronic (10) DM type 2 (diabetes mellitus, type 2) Priority: Secondary Status: Chronic Qualifiers: Diabetes mellitus manager intermediate insulin use: without skilled nursing use Diabetes mellitus complication status: without complication Qualified Code(s): E11.9 - Type 2 diabetes mellitus without complications Hospital course: Mr. Mehta is a 73 year old male who was brought to emergency room by his after she became concerned he was becoming dehydrated. He reports having diarrhea for the last 4-5 weeks following initiation of chemotherapy for colon cancer with known metastases to liver and lungs. He denies melena or hematochezia. He denies vomiting other than occasional "gagging". He was evaluated in emergency room found to have leukopenia, anemia, hypokalemia, and azotemia. He was admitted to [facility] floor for ongoing care needs. Initial orders were written by the emergency room physician. I saw him on July 03 and performed a history and physical. He was given IV fluids. Azotemia resolved with BUN and creatinine decreasing to 7 and 0.80 by day of discharge to swing bed. He had no further vomiting or diarrhea after admission. He was started empirically on Levaquin for bandemia. Etiology of the bandemia was not determined. He will continue with IV Levaquin and probiotic for 3 additional days in swing bed. WBC normalized to 8.5 by day of discharge to swing bed with 50% segs and 0 bands. Supplemental potassium was given and hypokalemia improved. He will continue on supplemental potassium in swing bed. Magnesium level was normal at 1.9. Hemoglobin A1c was 7.2%. I explained he had DM 2 but it appeared to be diet- controlled at this time. Anemia testing showed iron 80, transferrin saturation 41%, transferrin 139, ferritin 1099, B12 703, and folate> 22.3. TSH was normal at 5.54. He had PT and OT evaluation with ongoing intervention. He had improvement but it was felt would benefit from ongoing therapy in swing bed. Arrangements were complete for him to be discharged to swing bed on July 06. - Time Spent with Patient Total time spent providing and/or coordinating discharge services: - Discharge Medications Prescriptions: Levofloxacin 750 MG/150 ML [Levaquin Premix 750mg/150 mL] 750 mg IVPB DAILY 3 Days bag Home Medications: LORazepam [Ativan] 0.5 mg PO HS 07/02/18 [History] Ondansetron HCl [Zofran] 4 mg PO Q8HR PRN 07/02/18 [History] LORazepam [Ativan] 0.5 mg PO Q6HR PRN tablet 07/06/18 [Rx] Lactobacillus [Culturelle] 1 each PO BID 3 Days cap.sprink 07/06/18 [Rx] Levofloxacin 750 MG/150 ML [Levaquin Premix 750mg/150 mL] 750 mg IVPB DAILY 3 Days bag 07/06/18 [Rx] Phos-NaK [Neutra-Phos] 1 each PO BID powd.pack 07/06/18 [Rx] Potassium Chloride 10 meq PO BID tab.er.prt 07/06/18 [Rx] Allergies/Adverse Reactions: Allergy/AdvReac Type Severity Reaction Status Date / Time No Known Allergies Allergy Verified 07/02/18 12:13 Date of admission: 07/03/18 16:13 Primary care physician: PCP NONE Consults: 07/02/18 17:13 Consult to Nutrition [CONS] Routine Comment: Consulting Provider: NUTRITION Reason for Dietary Consult: MST Score Consult to Dressmaking Teacher [CONS] Routine Reason for SW Consult: Discharge Planning 07/05/18 10:26 Consult to Occupational Therapy [CONS] Routine Comment: Evaluate, develop and implement POC Reason for Consult: Weakness Does patient have active BEDREST order?: No Is patient medically & hemodynamically stable?: Yes Patient assessed for mobility or mobilized this visit?: Yes Consult to Physical Therapy [CONS] Routine Comment: Evaluate, develop and implement POC Reason for Consult: Weakness Does patient have active BEDREST order?: No Is patient medically & hemodynamically stable?: Yes Patient assessed for mobility or mobilized this visit?: Yes - Constitutional Vitals: Temp Pulse Resp BP Pulse Ox 98.3 F 56 16 154/86 93 07/06/18 06:43 07/06/18 06:43 07/06/18 06:43 07/06/18 06:43 07/06/18 06:43 - Patient Status Disposition: Transfer Hospital Swing Bed Condition: Good - Discharge Instructions - Diet and Activity Activity: as per physical therapy Diet: diabetic diet
== END 2018-07-06 12:39 | disposition other institution (70) | DRG 641 ==
LOC: INPPIK 11:57 → EMEROOPIK 11:57 → INPPIK 16:45
PROVIDERS: ADMIT Internal Medicine; ATTEND Internal Medicine

== ENCOUNTER 2018-07-06 12:44 | Inpatient (IN) ==
[2018-07-06] MEDS ORDERED: Ondansetron ODT 4 MG TAB.RAPDIS PO PRN (14:30)
[2018-07-06] MEDS ORDERED: *HR* LORazepam 0.5 MG TABLET PO PRN (14:30)
[2018-07-06] MEDS: Lactobacillus 1 EACH CAP.SPRINK PO SCH (20:16)
[2018-07-06] MEDS: *HR* LORazepam 0.5 MG TABLET PO SCH (20:16)
[2018-07-07] MEDS ORDERED: Levofloxacin 750 MG/150 ML 750 MG/150 ML BAG IVPB SCH (09:00)
[2018-07-07] MEDS ORDERED: NON-FORMULARY MEDICATION 1 EACH EACH (Levofloxacin 750 Mg/150 Ml 750 MG) IVPB SCH (09:00)
[2018-07-07] MEDS: Lactobacillus 1 EACH CAP.SPRINK PO SCH (09:17)
--- NOTE | 2018-07-07 10:26 | Internal Med Progress Note ---
Date of Encounter: 07/07/18 Time of Encounter: 10:18 - Assessment and plan (1) Weakness Current Visit: No Status: Chronic Assessment and plan: July 07. Continue PT and OT intervention. (2) Hypokalemia Current Visit: No Status: Acute Assessment and plan: July 07. Continue supplemental potassium. Recheck labs in a.m. (3) Bandemia Current Visit: No Status: Acute Assessment and plan: July 07. He is concerned the Levaquin may be affecting his bowel movements causing diarrhea. We agreed to discontinue Levaquin and lactobacillus and monitor. (4) Hypophosphatemia Current Visit: No Status: Acute Assessment and plan: July 07. Continue Neutra-Phos. Recheck labs in a.m. (5) DM type 2 (diabetes mellitus, type 2) Current Visit: No Status: Chronic Assessment and plan: July 07. Hemoglobin A1c was 7.2% on 07/03/2018. Qualifiers: Diabetes mellitus termite renewal inspector insulin use: without termite renewal inspector use Diabetes mellitus complication status: without complication Qualified Code(s): E11.9 - Type 2 diabetes mellitus without complications - Subjective Interval history: July 07. He was hospitalized in acute-care at [facility] July 02 after presenting with dehydration and diarrhea. TRAM resolved with IV fluids. Levaquin was given for bandemia with etiology undetermined. Hypokalemia improved with supplemental potassium. He had PT and OT evaluation and improved but it was felt he would benefit from swing bed stay. He has no new complaints today. - Constitutional Vitals: Temp Pulse Resp BP Pulse Ox 98.1 F 61 20 132/80 93 07/06/18 19:00 07/07/18 06:51 07/07/18 06:51 07/07/18 06:51 07/07/18 06:51 Exam: Is resting comfortably in bed and appears in no acute distress. His affect is bright and cheerful. I reviewed his medications and past lab results. Consult Discharge Plan - Plan Referrals: NONE,PCP [Primary Care Provider] - 1 week
[2018-07-07] MEDS: *HR* LORazepam 0.5 MG TABLET PO SCH (21:48)
[2018-07-08 05:38] LABS: Basophils % 0.3 %; Eosinophils # 0.1 K/mcL (0.0-0.6); Eosinophils % 1.1 %; Hematocrit 28.6 % (37.5-50.1); Hemoglobin 9.3 g/dL (12.9-16.9); Immature Granulocytes % 16.4 % (0-4); Lymphocytes # 2.4 K/mcL (0.6-4.6); Lymphocytes % 22.8 %; Mean Corpuscular HGB Conc 32.5 g/dL (31.6-35.5); Mean Corpuscular Hemoglobin 28.9 pg (28.0-33.3); Mean Corpuscular Volume 88.8 fL (83.0-100.0); Mean Platelet Volume 10.8 fL (9.4-12.4); Monocytes % 9.3 %; Neutrophils # 5.4 K/mcL (1.6-8.9); Nucleated Red Blood Cells 0.3 /100 WBC (0); Platelet Count 137 K/mcL (140-400); Red Blood Count 3.22 M/mcL (4.19-5.50); Red Cell Distribution Width 16.4 % (11.5-14.5); Segmented Neutrophils % 50.1 %
[2018-07-08 06:13] LABS: BUN/Creatinine Ratio 11 (6-26); Blood Urea Nitrogen 9 mg/dL (8-23); Calcium 7.4 mg/dL (8.6-10.3); Carbon Dioxide 27 mEq/L (23-29); Chloride 108 mEq/L (98-107); Glucose 119 mg/dL (70-105); Magnesium 1.5 mg/dL (1.6-2.6); Osmolality,Calculated 294 (280-300); Phosphorous 2.9 mg/dL (2.7-4.5); Potassium 2.9 mEq/L (3.5-5.1); Sodium 142 mEq/L (136-145); eGFR For Non-African Americans > 60 (> 60)
[2018-07-08 07:20] LABS: Anisocytosis 1+ (Not Present); Hypochromasia Present (Not Present); Platelet Estimate Slight Decrease (Normal); Polychromasia 1+ (Not Present)
--- NOTE | 2018-07-08 17:58 | Internal Med Progress Note ---
Date of Encounter: 07/08/18 Time of Encounter: 17:50 - Assessment and plan (1) Weakness Current Visit: No Status: Chronic Assessment and plan: July 07. Continue PT and OT intervention. (2) Hypokalemia Current Visit: No Status: Acute Assessment and plan: July 07. Continue supplemental potassium. Recheck labs in a.m. July 08. Hypokalemia has worsened. Increase potassium dose and monitor labs. (3) Bandemia Current Visit: No Status: Acute Assessment and plan: July 07. He is concerned the Levaquin may be affecting his bowel movements causing diarrhea. We agreed to discontinue Levaquin and lactobacillus and gabriel tor. July 08. Remains resolved. Continue to monitor. (4) Hypophosphatemia Current Visit: No Status: Acute Assessment and plan: July 07. Continue Neutra-Phos. Recheck labs in a.m. July 08. Phosphorus normalized to 2.9. Continue present dose Neutra-Phos and monitor labs. (5) DM type 2 (diabetes mellitus, type 2) Current Visit: No Status: Chronic Assessment and plan: July 07. Hemoglobin A1c was 7.2% on 07/03/2018. Qualifiers: Diabetes mellitus terminal operations supervisor insulin use: without [facility] use Diabetes mellitus complication status: without complication Qualified Code(s): E11.9 - Type 2 diabetes mellitus without complications (6) Hypomagnesemia Current Visit: Yes Status: Acute Assessment and plan: July 08. Magnesium level 1.5. Order magnesium oxide and recheck labs July 10. - Subjective Interval history: July 07. He was hospitalized in acute-care at [facility] July 02 after presenting with dehydration and diarrhea. TRAM resolved with IV fluids. Levaquin was given for bandemia with etiology undetermined. Hypokalemia improved with supplemental potassium. He had PT and OT evaluation and improved but it was felt he would benefit from swing bed stay. He has no new complaints today. July 08. He has had 2 episodes of diarrhea today. He denies abdominal pain or vomiting. Has no other new complaints. - Constitutional Vitals: Temp Pulse Resp BP Pulse Ox 97.8 F 80 16 129/82 93 07/08/18 06:32 07/08/18 06:32 07/08/18 06:32 07/08/18 06:32 07/08/18 06:32 Exam: He is resting comfortably in bed and appears in no acute distress. His affect is cheerful. He is talkative and appropriate in conversation. I reviewed his medications and lab results. Internal Medicine: Result - Labs CBC & Chem 7: 07/08/18 04:20 07/08/18 04:20 Labs: Short CBC 07/08/18 Range/Units 04:20 WBC 10.7 (4.3-11.1) K/mcL Hgb 9.3 L (12.9-16.9) g/dL Hct 28.6 L (37.5-50.1) % Plt Count 137 L (140-400) K/mcL Neutrophils # 5.4 (1.6-8.9) K/mcL BMP 07/08/18 04:20 Sodium 142 Potassium 2.9 L Chloride 108 H Carbon Dioxide 27 BUN 9 Creatinine 0.84 Glucose 119 H Calcium 7.4 L Consult Discharge Plan - Plan Referrals: NONE,PCP [Primary Care Provider] - 1 week
[2018-07-08] MEDS: Magnesium Oxide 400 MG TABLET PO SCH ×2 (19:58→20:01)
[2018-07-08] MEDS: *HR* LORazepam 0.5 MG TABLET PO SCH (21:58)
[2018-07-09] MEDS: Magnesium Oxide 400 MG TABLET PO SCH ×2 (08:23→20:10)
--- NOTE | 2018-07-09 10:29 | Internal Med Progress Note ---
Date of Encounter: 07/09/18 Time of Encounter: 10:18 - Assessment and plan (1) Weakness Current Visit: No Status: Chronic Assessment and plan: July 07. Continue PT and OT intervention. (2) Hypokalemia Current Visit: No Status: Acute Assessment and plan: July 07. Continue supplemental potassium. Recheck labs in a.m. July 08. Hypokalemia has worsened. Increase potassium dose and monitor labs. July 09. Recheck labs in a.m. (3) Bandemia Current Visit: No Status: Acute Assessment and plan: July 07. He is concerned the Levaquin may be affecting his bowel movements causing diarrhea. We agreed to discontinue Levaquin and lactobacillus and monitor. July 08. Remains resolved. Continue to monitor. July 09. Recheck labs in a.m. (4) Hypophosphatemia Current Visit: No Status: Acute Assessment and plan: July 07. Continue Neutra-Phos. Recheck labs in a.m. July 08. Phosphorus normalized to 2.9. Continue present dose Neutra-Phos and monitor labs. July 09. Recheck labs in a.m. (5) DM type 2 (diabetes mellitus, type 2) Current Visit: No Status: Chronic Assessment and plan: July 07. Hemoglobin A1c was 7.2% on 07/03/2018. Qualifiers: Diabetes mellitus [facility] insulin use: without [facility] use Diabetes mellitus complication status: without complication Qualified Code(s): E11.9 - Type 2 diabetes mellitus without complications (6) Hypomagnesemia Current Visit: Yes Status: Acute Assessment and plan: July 08. Magnesium level 1.5. Order magnesium oxide and recheck labs July 10. July 09. Recheck labs in a.m. - Subjective Interval history: July 07. He was hospitalized in acute-care at [facility] July 02 after presenting with dehydration and diarrhea. TRAM resolved with IV fluids. Levaquin was given for bandemia with etiology undetermined. Hypokalemia improved with supplemental potassium. He had PT and OT evaluation and improved but it was felt he would benefit from swing bed stay. He has no new complaints today. July 08. He has had 2 episodes of diarrhea today. He denies abdominal pain or vomiting. Has no other new complaints. July 09. He has no new complaints and feels better. He states diarrhea has slightly lessened. - Constitutional Vitals: Temp Pulse Resp BP Pulse Ox 98.3 F 63 18 146/81 95 07/09/18 07:26 07/09/18 07:26 07/09/18 07:26 07/09/18 07:26 07/08/18 19:13 Exam: He is resting comfortably in bed and appears in no acute distress. His affect is cheerful. I reviewed his medications and lab results. Internal Medicine: Result - Labs CBC & Chem 7: 07/08/18 04:20 07/08/18 04:20 Consult Discharge Plan - Plan Referrals: NONE,PCP [Primary Care Provider] - 1 week
[2018-07-09] MEDS: *HR* LORazepam 0.5 MG TABLET PO SCH ×2 (20:10→22:00)
[2018-07-10 06:01] LABS: Hematocrit 30.8 % (37.5-50.1); Mean Corpuscular HGB Conc 32.5 g/dL (31.6-35.5); Mean Corpuscular Hemoglobin 29.1 pg (28.0-33.3); Mean Corpuscular Volume 89.5 fL (83.0-100.0); Nucleated Red Blood Cells 0.3 /100 WBC (0); Platelet Count 166 K/mcL (140-400); Red Blood Count 3.44 M/mcL (4.19-5.50); Red Cell Distribution Width 17.4 % (11.5-14.5)
[2018-07-10 06:24] LABS: BUN/Creatinine Ratio 10 (6-26); Blood Urea Nitrogen 9 mg/dL (8-23); Calcium 7.7 mg/dL (8.6-10.3); Carbon Dioxide 27 mEq/L (23-29); Chloride 107 mEq/L (98-107); Glucose 100 mg/dL (70-105); Magnesium 1.7 mg/dL (1.6-2.6); Osmolality,Calculated 293 (280-300); Phosphorous 2.8 mg/dL (2.7-4.5); Potassium 3.7 mEq/L (3.5-5.1); Sodium 142 mEq/L (136-145); eGFR For Non-African Americans > 60 (> 60)
[2018-07-10 07:19] VITALS: BP 134/75
[2018-07-10 08:31] LABS: Anisocytosis 1+ (Not Present); Lymphocytes # 2.1 K/mcL (0.6-4.6); Monocytes # 1.9 K/mcL (0.0-1.3); Neutrophils # 8.5 K/mcL (1.6-8.9); Platelet Estimate Normal (Normal); Polychromasia 1+ (Not Present); Toxic Granulation Present (Not Present); Toxic Vacuolation Present (Not Present)
[2018-07-10] MEDS: Magnesium Oxide 400 MG TABLET PO SCH (09:49)
[2018-07-10 11:15] LABS: Bilirubin,Urine Negative (Negative); Blood,Urine Moderate (Negative); Clarity,Urine Slightly Cloudy (Clear); Color,Urine Yellow (Yellow); Glucose,Urine (UA) Normal (Normal); Ketones,Urine Negative (Negative); Leukocyte Esterase,Urine Negative (Negative); Nitrite,Urine Negative (Negative); PH,Urine 5.5 pH Units (5.0-8.0); Protein,Urine 30 mg/dL (Neg-Trace); Specific Gravity,Urine >= 1.030 (1.010-1.025); Urobilinogen,Urine Normal (Normal)
[2018-07-10 11:22] LABS: RBC,Urine 50-100 per hpf (0-3); WBC,Urine 0-3 per hpf (0-3)
[2018-07-10 11:23] LABS: Bacteria,Urine Moderate per hpf (None-Few); Mucus,Urine Many (Few); Squamous Epithelial Cell,Urine Few per lpf (None-Few); Yeast,Urine Few per hpf (None Seen)
--- NOTE | 2018-07-10 14:16 | Discharge Summary ---
Date of Encounter: 07/10/18 Time of Encounter: 14:05 - Discharge Diagnosis (1) Weakness Priority: Primary Status: Chronic (2) Hypokalemia Priority: Secondary Status: Resolved (3) Bandemia Priority: Secondary Status: Resolved (4) Hypophosphatemia Priority: Secondary Status: Resolved (5) DM type 2 (diabetes mellitus, type 2) Priority: Secondary Status: Chronic Qualifiers: Diabetes mellitus shelter insulin use: without shelter use Diabetes mellitus complication status: without complication Qualified Code(s): E11.9 - Type 2 diabetes mellitus without complications (6) Hypomagnesemia Priority: Secondary Status: Resolved Hospital course: Mr. Mehta is a 73 year old male who was hospitalized in acute-care at [facility] July 02 after presenting with dehydration and diarrhea. TRAM resolved with IV fluids. Levaquin was given for a few days for bandemia with etiology undetermined. Hypokalemia improved with supplemental potassium. He had PT and OT evaluation and improved but it was felt he would benefit from swing bed stay. He continue with physical therapy and occupational therapy during his swing bed stay. He made satisfactory progress and felt stronger. He wished to be di scharged home on July 10. He declined home health services. WBC harpreet to 13.2 on day of discharge. There was no significant left shift. Chest x-ray showed no obvious infiltrate. Urinalysis showed no leukocytosis although bacteria and RBCs were present. He remained afebrile. He agreed to not being prescribed antibiotics at this time. Potassium, phosphorus, magnesium levels were normal on day of discharge. He will continue magnesium oxide for 1 week. He reported using K-Phos at home and will continue this. He will increase potassium to 20 mEq twice a day. He will establish with a local PCP who can monitor labs. He will follow with his oncologist in [place] as directed. - Time Spent with Patient Total time spent providing and/or coordinating discharge services: - Discharge Medications Prescriptions: Magnesium Oxide [Mag-Ox] 400 mg PO BID #14 tablet Potassium Chloride 20 meq PO BIDWM #120 tab.er.prt Home Medications: LORazepam [Ativan] 0.5 mg PO HS 07/02/18 [History] Ondansetron HCl [Zofran] 4 mg PO Q8HR PRN 07/02/18 [History] LORazepam [Ativan] 0.5 mg PO Q6HR PRN tablet 07/06/18 [Rx] Phos-NaK [Neutra-Phos] 1 each PO BID powd.pack 07/06/18 [Rx] Magnesium Oxide [Mag-Ox] 400 mg PO BID #14 tablet 07/10/18 [Rx] Potassium Chloride 20 meq PO BIDWM #120 tab.er.prt 07/10/18 [Rx] Allergies/Adverse Reactions: Allergy/AdvReac Type Severity Reaction Status Date / Time No Known Allergies Allergy Verified 07/02/18 12:13 Date of admission: 07/06/18 14:39 Primary care physician: PCP NONE Consults: 07/06/18 14:19 Consult to Occupational Therapy [CONS] Routine Comment: evaluate, develop, and implement plan of care Reason for Consult: evaluate, develop, and implement plan of care Does patient have active BEDREST order?: No Is patient medically & hemodynamically stable?: Yes Patient assessed for mobility or mobilized this visit?: Yes Consult to Physical Therapy [CONS] Routine Comment: evaluate, develop, and implement plan of care Reason for Consult: evaluate, develop, and implement plan of care Does patient have active BEDREST order?: No Is patient medically & hemodynamically stable?: Yes Patient assessed for mobility or mobilized this visit?: Yes Consult to Autism Motor Specialist [CONS] Routine Reason for SW Consult: Discharge Planning - Constitutional Vitals: Temp Pulse Resp BP Pulse Ox 97.6 F 57 17 134/75 90 07/10/18 07:13 07/10/18 07:13 07/10/18 07:13 07/10/18 07:13 07/10/18 07:13 - Patient Status Disposition: Home, Self-Care - Discharge Instructions Follow Up With: NONE,PCP [Primary Care Provider] - 1 week - Diet and Activity Activity: as per physical therapy Diet: regular diet
== END 2018-07-10 15:45 | disposition home or self-care (01) | DRG 945 ==
LOC: INPPIK 14:39
PROVIDERS: ADMIT Internal Medicine; ATTEND Internal Medicine

== ENCOUNTER 2019-07-17 12:46 | Inpatient (IN) ==
[2019-07-17] MEDS ORDERED: 0.9 % Sodium Chloride 1,000 ML IVC ONE (12:52)
[2019-07-17] MEDS ORDERED: Ondansetron 4 MG/2 ML VIAL IVP ONE (12:52)
[2019-07-17] MEDS ORDERED: Ketorolac 30 MG/ML VIAL IVP ONE (12:53)
[2019-07-17 13:08] LABS: Basophils # 0.1 K/mcL (0.0-0.2); Basophils % 0.3 %; Eosinophils # 0.1 K/mcL (0.0-0.6); Eosinophils % 0.5 %; Hematocrit 43.5 % (37.5-50.1); Hemoglobin 14.6 g/dL (12.9-16.9); Immature Granulocytes % 0.5 % (0-4); Lymphocytes # 2.2 K/mcL (0.6-4.6); Lymphocytes % 13.4 %; Mean Corpuscular HGB Conc 33.6 g/dL (31.6-35.5); Mean Corpuscular Hemoglobin 29.9 pg (28.0-33.3); Mean Corpuscular Volume 89.1 fL (83.0-100.0); Mean Platelet Volume 10.6 fL (9.4-12.4); Monocytes % 6.1 %; Neutrophils # 13.2 K/mcL (1.6-8.9); Platelet Count 307 K/mcL (140-400); Red Blood Count 4.88 M/mcL (4.19-5.50); Red Cell Distribution Width 13.1 % (11.5-14.5); Segmented Neutrophils % 79.2 %; White Blood Count 16.7 K/mcL (4.3-11.1)
[2019-07-17 13:15] LABS: INR 1.3; Prothrombin Time 14.7 Seconds (9.4-12.1)
[2019-07-17 13:18] LABS: Activated Partial Thrombo Time 31.2 Seconds (26.0-36.0)
[2019-07-17] MEDS ORDERED: Ondansetron 4 MG/2 ML VIAL ONE (13:24)
[2019-07-17 13:27] LABS: Alanine Aminotransferase 11 Units/L (7-52); Albumin 3.4 g/dL (3.5-5.7); Alkaline Phosphatase 210 Units/L (34-104); Aspartate Amino Transferase 17 Units/L (13-39); BUN/Creatinine Ratio 14 (6-26); Bilirubin,Direct 0.2 mg/dL (0.0-0.2); Bilirubin,Indirect 0.9 mg/dL (0.0-1.0); Bilirubin,Total 1.1 mg/dL (0.3-1.0); Blood Urea Nitrogen 15 mg/dL (8-23); Calcium 8.5 mg/dL (8.6-10.3); Carbon Dioxide 23 mEq/L (23-29); Chloride 105 mEq/L (98-107); Globulin 3.4 g/dL (2.4-3.5); Glucose 198 mg/dL (70-105); Lipase 23 Units/L (11-82); Osmolality,Calculated 300 (280-300); Potassium 4.1 mEq/L (3.5-5.1); Sodium 142 mEq/L (136-145); Total Protein 6.8 g/dL (6.4-8.9); Troponin I < 0.03 ng/mL (< 0.04); eGFR For African Americans > 60 (> 60); eGFR For Non-African Americans > 60 (> 60)
[2019-07-17 14:10] LABS: Bilirubin,Urine Small (Negative); Blood,Urine Small (Negative); Clarity,Urine Clear (Clear); Color,Urine Dark Yellow (Yellow); Glucose,Urine (UA) Normal (Normal); Ketones,Urine Trace mg/dL (Negative); Leukocyte Esterase,Urine Small (Negative); Nitrite,Urine Negative (Negative); PH,Urine 5.5 pH Units (5.0-8.0); Protein,Urine 30 mg/dL (Neg-Trace); Specific Gravity,Urine 1.025 (1.010-1.025); Urobilinogen,Urine Normal (Normal)
[2019-07-17 14:21] LABS: RBC,Urine 0-3 per hpf (0-3); WBC,Urine 30-50 per hpf (0-3)
[2019-07-17 14:22] LABS: Squamous Epithelial Cell,Urine Few per lpf (None-Few)
[2019-07-17 14:23] LABS: Calcium Oxalate Crystals,Urine Present; Hyaline Casts,Urine Few per lpf (None-Few)
[2019-07-17 14:24] LABS: Bacteria,Urine Moderate per hpf (None-Few); Mucus,Urine Moderate per lpf (Few)
[2019-07-17] MEDS ORDERED: Naloxone 0.4 MG/ML INJ IVP PRN (15:03)
[2019-07-17] MEDS ORDERED: MOM Conc 10 ML UD.LIQ PO PRN (15:03)
[2019-07-17] MEDS ORDERED: Acetaminophen 325 MG TABLET PO PRN (15:03)
[2019-07-17] MEDS ORDERED: Mag Hydrox/Al Hydrox/Simeth 30 ML UDC PO PRN (15:03)
[2019-07-17] MEDS ORDERED: 0.9 % Sodium Chloride 1,000 ML IVC SCH (15:15)
[2019-07-17] MEDS ORDERED: *HR* LORazepam 0.5 MG TABLET PO PRN (18:48)
[2019-07-18] MEDS: *HR* HYDROcodone/Acet 5/325 mg TABLET PO PRN ×2 (03:43→08:15)
[2019-07-18 06:33] LABS: Basophils # 0.1 K/mcL (0.0-0.2); Basophils % 0.5 %; Eosinophils # 0.2 K/mcL (0.0-0.6); Eosinophils % 1.4 %; Hematocrit 39.7 % (37.5-50.1); Hemoglobin 12.6 g/dL (12.9-16.9); Immature Granulocytes % 0.7 % (0-4); Lymphocytes # 2.4 K/mcL (0.6-4.6); Lymphocytes % 18.4 %; Mean Corpuscular HGB Conc 31.7 g/dL (31.6-35.5); Mean Corpuscular Hemoglobin 29.3 pg (28.0-33.3); Mean Corpuscular Volume 92.3 fL (83.0-100.0); Mean Platelet Volume 10.6 fL (9.4-12.4); Monocytes % 7.5 %; Neutrophils # 9.3 K/mcL (1.6-8.9); Platelet Count 253 K/mcL (140-400); Red Cell Distribution Width 13.2 % (11.5-14.5); Segmented Neutrophils % 71.5 %
[2019-07-18 06:55] LABS: BUN/Creatinine Ratio 16 (6-26); Blood Urea Nitrogen 15 mg/dL (8-23); Calcium 7.9 mg/dL (8.6-10.3); Carbon Dioxide 28 mEq/L (23-29); Chloride 107 mEq/L (98-107); Glucose 118 mg/dL (70-105); Osmolality,Calculated 296 (280-300); Potassium 3.9 mEq/L (3.5-5.1); Sodium 142 mEq/L (136-145); eGFR For African Americans > 60 (> 60); eGFR For Non-African Americans > 60 (> 60)
[2019-07-18] MEDS ORDERED: cefTRIAXone 1,000 MG in Water for inj. (sterile) 10 ML IVPB SCH (14:00)
[2019-07-18] MEDS: Ondansetron 4 MG/2 ML VIAL IVP PRN (14:23)
[2019-07-19] MEDS: *HR* HYDROcodone/Acet 5/325 mg TABLET PO PRN ×4 (00:33→20:03)
[2019-07-19] MEDS: *HR* Enoxaparin 40 MG/0.4 ML SYRINGE SQ SCH (05:48)
[2019-07-19] MEDS: Ondansetron 4 MG/2 ML VIAL IVP PRN ×2 (08:33→17:15)
[2019-07-20] MEDS: *HR* HYDROcodone/Acet 5/325 mg TABLET PO PRN (01:21)
[2019-07-20] MEDS: *HR* Enoxaparin 40 MG/0.4 ML SYRINGE SQ SCH (05:52)
[2019-07-20 07:37] LABS: Hematocrit 37.3 % (37.5-50.1); Mean Corpuscular HGB Conc 32.2 g/dL (31.6-35.5); Mean Corpuscular Hemoglobin 29.3 pg (28.0-33.3); Mean Corpuscular Volume 91.2 fL (83.0-100.0); Mean Platelet Volume 10.6 fL (9.4-12.4); Platelet Count 234 K/mcL (140-400); Red Blood Count 4.09 M/mcL (4.19-5.50); Red Cell Distribution Width 13.1 % (11.5-14.5); White Blood Count 12.4 K/mcL (4.3-11.1)
[2019-07-20 07:57] LABS: BUN/Creatinine Ratio 11 (6-26); Blood Urea Nitrogen 10 mg/dL (8-23); Calcium 7.9 mg/dL (8.6-10.3); Carbon Dioxide 29 mEq/L (23-29); Chloride 105 mEq/L (98-107); Glucose 105 mg/dL (70-105); Osmolality,Calculated 291 (280-300); Potassium 3.7 mEq/L (3.5-5.1); Sodium 141 mEq/L (136-145); eGFR For African Americans > 60 (> 60); eGFR For Non-African Americans > 60 (> 60)
[2019-07-20] MEDS: Ondansetron 4 MG/2 ML VIAL IVP PRN (08:38)
[2019-07-20] MEDS: Ondansetron ODT 4 MG TAB.RAPDIS SL PRN (12:07)
[2019-07-20] MEDS: Cefdinir 300 MG CAPSULE PO SCH ×2 (15:18→19:54)
[2019-07-21] MEDS: *HR* Enoxaparin 40 MG/0.4 ML SYRINGE SQ SCH (05:37)
[2019-07-21] MEDS: Ondansetron ODT 4 MG TAB.RAPDIS SL PRN (07:41)
[2019-07-21] MEDS: Cefdinir 300 MG CAPSULE PO SCH (07:41)
[2019-07-21 14:17] VITALS: BP 138/77
[2019-07-21] MEDS: *HR* HYDROcodone/Acet 5/325 mg TABLET PO PRN (17:10)
== END 2019-07-21 16:56 | DRG 689 ==
LOC: INPPIK 12:46 → EMEROOPIK 12:46 → INPPIK 17:38
PROVIDERS: ADMIT Family Medicine; ATTEND Family Medicine

== ENCOUNTER 2019-07-21 16:33 | Inpatient (IN) ==
[2019-07-21] MEDS ORDERED: *HR* LORazepam 0.5 MG TABLET PO PRN (18:02)
[2019-07-21] MEDS: Cefdinir 300 MG CAPSULE PO SCH (20:36)
[2019-07-22] MEDS: *HR* HYDROcodone/Acet 5/325 mg TABLET PO PRN ×2 (08:33→19:56)
[2019-07-22] MEDS: Cefdinir 300 MG CAPSULE PO SCH ×2 (08:34→19:55)
[2019-07-22] MEDS: Ondansetron ODT 4 MG TAB.RAPDIS SL PRN (14:03)
[2019-07-22] MEDS: Lactobacillus 1 EACH CAP.SPRINK PO SCH (19:55)
[2019-07-23] MEDS: Lactobacillus 1 EACH CAP.SPRINK PO SCH ×2 (08:40→21:13)
[2019-07-23] MEDS: Ondansetron ODT 4 MG TAB.RAPDIS SL PRN (11:15)
[2019-07-23] MEDS: *HR* HYDROcodone/Acet 5/325 mg TABLET PO PRN ×2 (12:11→21:38)
[2019-07-23 23:43] LABS: Adenovirus F 40/41 PCR Not detected (Not detect); Astrovirus PCR Not detected (Not detect); C.difficile Toxin A/B Gene PCR Not detected (Not detect); Campylobacter by PCR Not detected (Not detect); Cryptosporidium by PCR Not detected (Not detect); Cyclospora cayetanensis PCR Not detected (Not detect); E. coli O157 by PCR Not detected (Not detect); Entamoeba histolytica PCR Not detected (Not detect); Enteroaggregative E.coli(EAEC) Not detected (Not detect); Enteropathogenic E.coli(EPEC) Not detected (Not detect); Enterotoxigenic E.coli (ETEC) Not detected (Not detect); Giardia lamblia PCR Not detected (Not detect); Norovirus GI/GII PCR Not detected (Not detect); Plesiomonas shigelloides PCR Not detected (Not detect); Rotavirus A PCR Not detected (Not detect); Salmonella PCR Not detected (Not detect); Sapovirus PCR Not detected (Not detect); Shig/EnteroinvasiveE coli EIEC Not detected (Not detect); Shigalike tox-prod E coli STEC Not detected (Not detect); Vibrio PCR Not detected (Not detect); Vibrio cholerae PCR Not detected (Not detect); Yersinia enterocolitica PCR Not detected (Not detect)
[2019-07-24] MEDS: Lactobacillus 1 EACH CAP.SPRINK PO SCH ×2 (08:37→19:39)
[2019-07-24] MEDS: Ondansetron ODT 4 MG TAB.RAPDIS SL PRN (10:01)
[2019-07-24] MEDS: *HR* HYDROcodone/Acet 5/325 mg TABLET PO PRN ×2 (13:12→19:39)
[2019-07-25] MEDS: Lactobacillus 1 EACH CAP.SPRINK PO SCH ×2 (08:51→20:50)
[2019-07-25] MEDS: *HR* HYDROcodone/Acet 5/325 mg TABLET PO PRN ×2 (08:51→12:55)
[2019-07-25] MEDS: *HR* HYDROcodone/Acet 7.5/325 mg TABLET PO PRN ×2 (17:27→20:52)
[2019-07-26] MEDS: *HR* HYDROcodone/Acet 7.5/325 mg TABLET PO PRN ×4 (05:18→18:49)
[2019-07-26 07:35] LABS: Hematocrit 36.3 % (37.5-50.1); Hemoglobin 11.7 g/dL (12.9-16.9); Mean Corpuscular HGB Conc 32.2 g/dL (31.6-35.5); Mean Corpuscular Hemoglobin 29.1 pg (28.0-33.3); Mean Corpuscular Volume 90.3 fL (83.0-100.0); Mean Platelet Volume 10.3 fL (9.4-12.4); Platelet Count 279 K/mcL (140-400); Red Blood Count 4.02 M/mcL (4.19-5.50); Red Cell Distribution Width 13.2 % (11.5-14.5); White Blood Count 12.3 K/mcL (4.3-11.1)
[2019-07-26 07:44] LABS: BUN/Creatinine Ratio 13 (6-26); Blood Urea Nitrogen 12 mg/dL (8-23); Calcium 8.2 mg/dL (8.6-10.3); Carbon Dioxide 28 mEq/L (23-29); Chloride 102 mEq/L (98-107); Glucose 113 mg/dL (70-105); Osmolality,Calculated 285 (280-300); Potassium 4.1 mEq/L (3.5-5.1); Sodium 137 mEq/L (136-145); eGFR For African Americans > 60 (> 60); eGFR For Non-African Americans > 60 (> 60)
[2019-07-26] MEDS: Lactobacillus 1 EACH CAP.SPRINK PO SCH ×2 (08:54→21:23)
[2019-07-26] MEDS: *HR* OxyCODONE ER (12 HR) 10 MG TABLET PO SCH (17:47)
[2019-07-27] MEDS: *HR* HYDROcodone/Acet 7.5/325 mg TABLET PO PRN ×3 (01:28→20:16)
[2019-07-27] MEDS: *HR* OxyCODONE ER (12 HR) 10 MG TABLET PO SCH ×2 (06:49→18:07)
[2019-07-27] MEDS: Lactobacillus 1 EACH CAP.SPRINK PO SCH ×2 (09:05→20:16)
[2019-07-28] MEDS: *HR* OxyCODONE ER (12 HR) 10 MG TABLET PO SCH ×2 (05:33→17:18)
[2019-07-28] MEDS: *HR* HYDROcodone/Acet 7.5/325 mg TABLET PO PRN ×3 (08:31→20:52)
[2019-07-28] MEDS: Lactobacillus 1 EACH CAP.SPRINK PO SCH ×2 (08:31→20:44)
[2019-07-28] MEDS: Sennosides/Docusate Sodium TABLET PO SCH (20:44)
[2019-07-29] MEDS: *HR* OxyCODONE ER (12 HR) 10 MG TABLET PO SCH ×2 (06:09→22:12)
[2019-07-29] MEDS: Sennosides/Docusate Sodium TABLET PO SCH ×2 (08:19→22:11)
[2019-07-29] MEDS: Lactobacillus 1 EACH CAP.SPRINK PO SCH ×2 (08:19→22:11)
[2019-07-29] MEDS: *HR* HYDROcodone/Acet 7.5/325 mg TABLET PO PRN ×2 (10:14→15:06)
[2019-07-29] MEDS ORDERED: Isovue-370 500 ML BOTTLE IVP ONE (13:44)
[2019-07-29] MEDS ORDERED: *HR* LORazepam 0.5 MG TABLET PO ONE (15:16)
[2019-07-29] MEDS: Ondansetron ODT 4 MG TAB.RAPDIS SL PRN (16:46)
[2019-07-30] MEDS: *HR* OxyCODONE ER (12 HR) 10 MG TABLET PO SCH ×2 (06:46→17:47)
[2019-07-30] MEDS: Lactobacillus 1 EACH CAP.SPRINK PO SCH ×2 (09:46→20:40)
[2019-07-30] MEDS: Sennosides/Docusate Sodium TABLET PO SCH ×2 (09:46→20:40)
[2019-07-30] MEDS: *HR* HYDROcodone/Acet 7.5/325 mg TABLET PO PRN ×3 (09:46→20:42)
[2019-07-31] MEDS: *HR* OxyCODONE ER (12 HR) 10 MG TABLET PO SCH ×2 (06:47→17:37)
[2019-07-31] MEDS: Lactobacillus 1 EACH CAP.SPRINK PO SCH ×2 (08:04→20:23)
[2019-07-31] MEDS: Sennosides/Docusate Sodium TABLET PO SCH ×2 (08:05→20:23)
[2019-07-31] MEDS: *HR* HYDROcodone/Acet 7.5/325 mg TABLET PO PRN ×2 (16:06→20:24)
[2019-08-01] MEDS: *HR* OxyCODONE ER (12 HR) 10 MG TABLET PO SCH ×2 (05:23→18:42)
[2019-08-01] MEDS: *HR* HYDROcodone/Acet 7.5/325 mg TABLET PO PRN ×2 (07:57→16:49)
[2019-08-01] MEDS: Lactobacillus 1 EACH CAP.SPRINK PO SCH ×2 (07:57→21:08)
[2019-08-01] MEDS ORDERED: Lactulose Oral Soln 20 GM/30 ML UDC PO ONE (08:24)
[2019-08-01 13:02] LABS: Bilirubin,Urine Negative (Negative); Blood,Urine Trace-intact (Negative); Clarity,Urine Clear (Clear); Color,Urine Yellow (Yellow); Glucose,Urine (UA) Normal (Normal); Ketones,Urine Negative (Negative); Leukocyte Esterase,Urine Negative (Negative); Nitrite,Urine Negative (Negative); PH,Urine 5.5 pH Units (5.0-8.0); Protein,Urine Negative (Neg-Trace); Urobilinogen,Urine Normal (Normal)
[2019-08-01 13:09] LABS: RBC,Urine 0-3 per hpf (0-3); Squamous Epithelial Cell,Urine Few per lpf (None-Few); WBC,Urine 0-3 per hpf (0-3)
[2019-08-01] MEDS: Sennosides/Docusate Sodium TABLET PO SCH ×3 (13:30→21:11)
[2019-08-02] MEDS: *HR* OxyCODONE ER (12 HR) 10 MG TABLET PO SCH ×2 (05:43→17:48)
[2019-08-02] MEDS ORDERED: Gadolinium Contrast Agent (WT Based) IV PRN (06:56)
[2019-08-02] MEDS: Sennosides/Docusate Sodium TABLET PO SCH ×2 (08:42→20:08)
[2019-08-02] MEDS: Lactobacillus 1 EACH CAP.SPRINK PO SCH ×2 (11:01→20:08)
[2019-08-02] MEDS: *HR* HYDROcodone/Acet 7.5/325 mg TABLET PO PRN ×2 (11:01→20:08)
[2019-08-03] MEDS: *HR* OxyCODONE ER (12 HR) 10 MG TABLET PO SCH ×2 (06:02→17:26)
[2019-08-03] MEDS: Ondansetron ODT 4 MG TAB.RAPDIS SL PRN (08:41)
[2019-08-03] MEDS: Lactobacillus 1 EACH CAP.SPRINK PO SCH ×2 (08:42→20:57)
[2019-08-03] MEDS: Sennosides/Docusate Sodium TABLET PO SCH ×2 (08:43→20:57)
[2019-08-04] MEDS: *HR* OxyCODONE ER (12 HR) 10 MG TABLET PO SCH (06:08)
[2019-08-04 06:18] VITALS: BP 138/64
[2019-08-04] MEDS: Lactobacillus 1 EACH CAP.SPRINK PO SCH (10:06)
[2019-08-04] MEDS: Sennosides/Docusate Sodium TABLET PO SCH (10:10)
[2019-08-04] MEDS ORDERED: *HR* LORazepam 0.5 MG TABLET PO ONE (16:06)
[2019-08-04] MEDS: *HR* HYDROcodone/Acet 7.5/325 mg TABLET PO PRN (16:15)
== END 2019-08-04 16:47 | disposition hospice, home (50) | DRG 375 ==
LOC: INPPIK 17:17
PROVIDERS: ADMIT Family Medicine; ATTEND Family Medicine